=== PATIENT | female | born 1935 | race Caucasian/White ===

== ENCOUNTER → 2017-10-05 05:00 | Outpatient (REF) | payer MEDICARE, OTHER, SELFPAY ==
[2017-10-05 08:07] LABS: Hematocrit 35.3 % (37-47); Hemoglobin 10.9 g/dl (12.0-15.0); Mean Corp Hgb Conc 30.9 g/gl (32-36); Mean Corpuscular Hgb 23.7 pg (27.0-32.0); Mean Corpuscular Volume 76.7 fL (81-99); Mean Platelet Vol. 11.4 fl (6.2-12.0); Platelet Count 271 K/mm3 (150-450); RBC Distribution Width SD 41.7 fl (35.1-43.9); White Blood Count 7.2 K/mm3 (4.4-11.0)
[2017-10-05 08:08] LABS: Anion Gap 7 (5-15); BUN 25 mg/dL (7-18); BUN/Creat Ratio 17.9 RATIO (10-20); Calcium,Total 8.5 mg/dL (8.5-10.1); Chloride 101 mmol/L (98-107); EST Glomerular Filtration Rate 38 mL/min (>60); Est Glom Filt Rate - Afr Amer 46 mL/min (>60); Glucose 329 mg/dL (74-106); Potassium 4.4 mmol/L (3.5-5.1); Sodium Level 136 mmol/L (136-145)
[2017-10-05 08:14] LABS: Scan Indicated on CBC? Y/N NO
[2017-10-05 08:32] LABS: Hemoglobin A1c 8.6 % (4.2-6.3)
== END ==
LOC: OLS.DANBUR 05:00
PROVIDERS: Visit Provider Family Medicine
DX: I48.91 Unspecified atrial fibrillation (principal); E11.9 Type 2 diabetes mellitus without complications; E78.5 Hyperlipidemia, unspecified
CPT/HCPCS: 36415; 80048; 83036; 85027

== ENCOUNTER → 2017-10-16 03:00 | Outpatient (REF) | payer MEDICARE, OTHER, SELFPAY ==
[2017-10-16 11:35] LABS: Color, Urine Yellow (Yellow); Glucose, Dipstick Normal (Normal); Ketone-Dipstick Negative (Negative); Leukocyte Esterase-Dipstick 500 /ul (Negative); Nitrite-Dipstick Positive (Negative); Occult Blood-Urine 150 /ul (Negative); Protein-Dipstick 30 mg/dl (Negative); Specific Gravity, Urine 1.015 (1.002-1.030); Urine Bilirubin Dipstick Negative (Negative); Urine Clarity Clear (Clear); Urine Urobilinogen Normal (Normal)
== END ==
LOC: OLS.DANBUR 03:00
PROVIDERS: Visit Provider Family Medicine
DX: N39.0 Urinary tract infection, site not specified (principal)
CPT/HCPCS: 81002; 87077; 87086; 87088; 87186

== ENCOUNTER → 2017-11-23 07:00 | Outpatient (REF) | payer MEDICARE, OTHER, SELFPAY ==
[2017-11-23 08:46] LABS: Color, Urine Yellow (Yellow); Glucose, Dipstick Normal (Normal); Ketone-Dipstick Negative (Negative); Leukocyte Esterase-Dipstick 500 /ul (Negative); Nitrite-Dipstick Negative (Negative); Occult Blood-Urine 25 /ul (Negative); Protein-Dipstick 15 mg/dl (Negative); Urine Bilirubin Dipstick Negative (Negative); Urine Clarity Sl. Cloudy (Clear); Urine Urobilinogen Normal (Normal)
== END ==
LOC: OLS.DANBUR 07:00
PROVIDERS: Visit Provider Family Medicine
DX: N39.0 Urinary tract infection, site not specified (principal)
CPT/HCPCS: 81002; 87077; 87086; 87088; 87186

== ENCOUNTER → 2017-12-08 06:52 | Outpatient (REF) | payer MEDICARE, OTHER, SELFPAY ==
[2017-12-08 08:38] LABS: Color, Urine Straw (Yellow); Glucose, Dipstick Normal (Normal); Ketone-Dipstick Negative (Negative); Leukocyte Esterase-Dipstick 500 /ul (Negative); Nitrite-Dipstick Negative (Negative); Occult Blood-Urine 25 /ul (Negative); Protein-Dipstick Negative (Negative); Urine Bilirubin Dipstick Negative (Negative); Urine Clarity Clear (Clear); Urine Urobilinogen Normal (Normal); Urine pH 6.5 (5.0 - 8.0)
== END ==
LOC: OLS.DANBUR 06:52
PROVIDERS: Visit Provider Family Medicine
DX: N39.0 Urinary tract infection, site not specified (principal)
CPT/HCPCS: 81002; 87077; 87086; 87088; 87186

== ENCOUNTER → 2017-12-25 21:00 | Outpatient (REF) | payer MEDICARE, OTHER, SELFPAY ==
[2017-12-26 08:04] LABS: Color, Urine Straw (Yellow); Glucose, Dipstick Normal (Normal); Ketone-Dipstick Negative (Negative); Leukocyte Esterase-Dipstick 500 /ul (Negative); Nitrite-Dipstick Negative (Negative); Occult Blood-Urine 250 /ul (Negative); Protein-Dipstick 30 mg/dl (Negative); Specific Gravity, Urine 1.015 (1.002-1.030); Urine Bilirubin Dipstick Negative (Negative); Urine Clarity Sl. Cloudy (Clear); Urine Urobilinogen Normal (Normal)
== END ==
LOC: OLS.DANBUR 21:00
PROVIDERS: Visit Provider Family Medicine
DX: N39.0 Urinary tract infection, site not specified (principal)
CPT/HCPCS: 81002; 87077; 87086; 87088; 87186

== ENCOUNTER → 2018-01-13 08:14 | Outpatient (REF) | payer MEDICARE, OTHER, SELFPAY ==
[2018-01-13 08:52] LABS: Color, Urine Yellow (Yellow); Glucose, Dipstick 100 mg/dl (Normal); Ketone-Dipstick Negative (Negative); Leukocyte Esterase-Dipstick 500 /ul (Negative); Nitrite-Dipstick Negative (Negative); Occult Blood-Urine 150 /ul (Negative); Protein-Dipstick 15 mg/dl (Negative); Specific Gravity, Urine 1.015 (1.002-1.030); Urine Bilirubin Dipstick Negative (Negative); Urine Clarity Clear (Clear); Urine Urobilinogen Normal (Normal)
== END ==
LOC: OLS.DANBUR 08:14
PROVIDERS: Visit Provider Family Medicine
DX: N39.0 Urinary tract infection, site not specified (principal)
CPT/HCPCS: 81002; 87077; 87086; 87088; 87186

== ENCOUNTER → 2018-02-01 05:00 | Outpatient (REF) | payer MEDICARE, OTHER, SELFPAY ==
[2018-02-01 07:53] LABS: Hematocrit 37.4 % (37-47); Hemoglobin 11.9 g/dl (12.0-15.0); Mean Corp Hgb Conc 31.8 g/gl (32-36); Mean Corpuscular Hgb 25.6 pg (27.0-32.0); Mean Corpuscular Volume 80.4 fL (81-99); Mean Platelet Vol. 11.2 fl (6.2-12.0); Platelet Count 191 K/mm3 (150-450); RBC Distribution Width CV 16.4 % (11.6-14.6); RBC Distribution Width SD 47.3 fl (35.1-43.9); Red Blood Count 4.65 M/mm3 (4.2-5.4); White Blood Count 7.8 K/mm3 (4.4-11.0)
[2018-02-01 07:55] LABS: Scan Indicated on CBC? Y/N NO
[2018-02-01 08:06] LABS: ALB/GLOB Ratio 0.8 RATIO (0.9-2.4); AST(SGOT) 14 U/L (15-37); Alanine Aminotransfer ALT/SGPT 26 U/L (13-56); Alkaline Phosphatase 78 U/L (45-117); Anion Gap 7 (5-15); BUN 34 mg/dL (7-18); BUN/Creat Ratio 16.4 RATIO (10-20); Calcium,Total 8.1 mg/dL (8.5-10.1); Chloride 103 mmol/L (98-107); Creatinine, Serum 2.07 mg/dL (0.55-1.02); EST Glomerular Filtration Rate 24 mL/min (>60); Est Glom Filt Rate - Afr Amer 30 mL/min (>60); Globulin 3.6 g/dL (2.2-4.2); Glucose 184 mg/dL (74-106); Potassium 4.6 mmol/L (3.5-5.1); Protein, Total 6.6 g/dL (6.4-8.2); Sodium Level 139 mmol/L (136-145)
== END ==
LOC: OLS.DANBUR 05:00
PROVIDERS: Visit Provider Family Medicine
DX: I48.91 Unspecified atrial fibrillation (principal); F03.90 Unspecified dementia, unspecified severity, without behavioral disturbance, psychotic disturbance, mood disturbance, and anxiety; E11.9 Type 2 diabetes mellitus without complications; I10 Essential (primary) hypertension; E78.5 Hyperlipidemia, unspecified; R60.0 Localized edema; F32.9 Major depressive disorder, single episode, unspecified; M19.90 Unspecified osteoarthritis, unspecified site
CPT/HCPCS: 36415; 80053; 85027

== ENCOUNTER → 2018-02-28 07:31 | Outpatient (REF) | payer MEDICARE, OTHER, SELFPAY ==
[2018-02-28 08:08] LABS: Color, Urine Straw (Yellow); Glucose, Dipstick Normal (Normal); Ketone-Dipstick Negative (Negative); Leukocyte Esterase-Dipstick 500 /ul (Negative); Nitrite-Dipstick Negative (Negative); Occult Blood-Urine 150 /ul (Negative); Protein-Dipstick Negative (Negative); Urine Bilirubin Dipstick Negative (Negative); Urine Clarity Clear (Clear); Urine Urobilinogen Normal (Normal); Urine pH 6.5 (5.0 - 8.0)
== END ==
LOC: OLS.DANBUR 07:31
PROVIDERS: Visit Provider Family Medicine
DX: N39.0 Urinary tract infection, site not specified (principal)
CPT/HCPCS: 81002; 87086; 87088

== ENCOUNTER → 2018-04-05 06:00 | Outpatient (REF) | payer MEDICARE, OTHER, SELFPAY ==
[2018-04-05 09:24] LABS: Hematocrit 40.2 % (37-47); Hemoglobin 13.1 g/dl (12.0-15.0); Mean Corp Hgb Conc 32.6 g/gl (32-36); Mean Corpuscular Hgb 27.2 pg (27.0-32.0); Mean Corpuscular Volume 83.6 fL (81-99); Mean Platelet Vol. 11.2 fl (6.2-12.0); Platelet Count 186 K/mm3 (150-450); RBC Distribution Width CV 14.6 % (11.6-14.6); Red Blood Count 4.81 M/mm3 (4.2-5.4); White Blood Count 7.6 K/mm3 (4.4-11.0)
[2018-04-05 09:27] LABS: Scan Indicated on CBC? Y/N NO
[2018-04-05 09:29] LABS: Anion Gap 9 (5-15); BUN 25 mg/dL (7-18); BUN/Creat Ratio 16.7 RATIO (10-20); Calcium,Total 8.5 mg/dL (8.5-10.1); Chloride 102 mmol/L (98-107); EST Glomerular Filtration Rate 35 mL/min (>60); Est Glom Filt Rate - Afr Amer 43 mL/min (>60); Glucose 234 mg/dL (74-106); Potassium 4.4 mmol/L (3.5-5.1); Sodium Level 138 mmol/L (136-145)
[2018-04-05 09:43] LABS: Hemoglobin A1c 9.1 % (4.2-6.3)
== END ==
LOC: OLS.DANBUR 06:00
PROVIDERS: Visit Provider Family Medicine
DX: I10 Essential (primary) hypertension (principal); E78.5 Hyperlipidemia, unspecified; E11.9 Type 2 diabetes mellitus without complications
CPT/HCPCS: 36415; 80048; 83036; 85027

== ENCOUNTER → 2018-07-06 05:00 | Outpatient (REF) | payer MEDICARE, OTHER, SELFPAY ==
[2018-07-06 08:23] LABS: Hemoglobin A1c 8.6 % (4.2-6.3)
[2018-07-06 08:35] LABS: Anion Gap 9 (5-15); BUN 27 mg/dL (7-18); BUN/Creat Ratio 15.9 RATIO (10-20); Calcium,Total 8.9 mg/dL (8.5-10.1); Chloride 104 mmol/L (98-107); EST Glomerular Filtration Rate 31 mL/min (>60); Est Glom Filt Rate - Afr Amer 37 mL/min (>60); Glucose 121 mg/dL (74-106); Potassium 4.8 mmol/L (3.5-5.1); Sodium Level 141 mmol/L (136-145)
== END ==
LOC: OLS.DANBUR 05:00
PROVIDERS: Visit Provider Family Medicine
DX: I48.91 Unspecified atrial fibrillation (principal); F03.90 Unspecified dementia, unspecified severity, without behavioral disturbance, psychotic disturbance, mood disturbance, and anxiety; E11.9 Type 2 diabetes mellitus without complications; I10 Essential (primary) hypertension; B35.1 Tinea unguium; F32.9 Major depressive disorder, single episode, unspecified; M19.90 Unspecified osteoarthritis, unspecified site
CPT/HCPCS: 36415; 80048; 83036

== ENCOUNTER → 2018-11-18 02:00 | Outpatient (REF) | payer MEDICARE, OTHER, SELFPAY ==
[2018-11-18 10:22] LABS: Color, Urine Yellow (Yellow); Glucose, Dipstick Normal (Normal); Ketone-Dipstick Negative (Negative); Leukocyte Esterase-Dipstick 500 /ul (Negative); Nitrite-Dipstick Negative (Negative); Occult Blood-Urine 10 /ul (Negative); Protein-Dipstick Negative (Negative); Specific Gravity, Urine 1.015 (1.002-1.030); Urine Bilirubin Dipstick Negative (Negative); Urine Clarity Clear (Clear); Urine Urobilinogen Normal (Normal)
== END ==
LOC: OLS.DANBUR 02:00
PROVIDERS: Visit Provider Family Medicine
DX: R30.0 Dysuria (principal); R53.1 Weakness
CPT/HCPCS: 81002; 87086; 87088

== ENCOUNTER → 2019-01-03 05:00 | Outpatient (REF) | payer MEDICARE, OTHER, SELFPAY ==
[2019-01-03 07:48] LABS: Hematocrit 43.5 % (37-47); Hemoglobin 14.1 g/dl (12.0-15.0); Mean Corp Hgb Conc 32.4 g/gl (32-36); Mean Corpuscular Hgb 28.3 pg (27.0-32.0); Mean Corpuscular Volume 87.2 fL (81-99); Mean Platelet Vol. 11.5 fl (6.2-12.0); Platelet Count 172 K/mm3 (150-450); RBC Distribution Width CV 13.3 % (11.6-14.6); Red Blood Count 4.99 M/mm3 (4.2-5.4); White Blood Count 7.5 K/mm3 (4.4-11.0)
[2019-01-03 07:50] LABS: Scan Indicated on CBC? Y/N NO
[2019-01-03 07:58] LABS: Anion Gap 6 (5-15); BUN 27 mg/dL (7-18); BUN/Creat Ratio 17.2 RATIO (10-20); Calcium,Total 8.8 mg/dL (8.5-10.1); Chloride 107 mmol/L (98-107); Creatinine, Serum 1.57 mg/dL (0.55-1.02); EST Glomerular Filtration Rate 33 mL/min (>60); Est Glom Filt Rate - Afr Amer 40 mL/min (>60); Glucose 120 mg/dL (74-106); Sodium Level 142 mmol/L (136-145)
[2019-01-03 08:01] LABS: Hemoglobin A1c 7.7 % (4.2-6.3)
== END ==
LOC: OLS.DANBUR 05:00
PROVIDERS: Visit Provider Family Medicine
DX: I48.91 Unspecified atrial fibrillation (principal); D64.9 Anemia, unspecified; E11.9 Type 2 diabetes mellitus without complications; I10 Essential (primary) hypertension; E78.5 Hyperlipidemia, unspecified
CPT/HCPCS: 36415; 80048; 83036; 85027

== ENCOUNTER 2019-04-16 11:30 | Inpatient (IN) | payer MEDICARE, SELFPAY ==
[2019-04-16] VITALS (8 sets, daily range): BP systolic 102–160; BP diastolic 52–82; PULSE 77–123; RESP 18–29; TEMP 36.2–39; O2SAT 93–98; BMI 40.3; BMI 39.4
--- NOTE | 2019-04-16 11:36 | EKG12_ITS ---
Test Reason : SOB Blood Pressure : / mmHG Vent. Rate : 108 BPM Atrial Rate : 115 BPM P-R Int : 000 ms QRS Dur : 086 ms QT Int : 330 ms P-R-T Axes : 000 053 146 degrees QTc Int : 442 ms Atrial fibrillation with rapid ventricular response Abnormal QRS-T angle, consider primary T wave abnormality Abnormal ECG Confirmed by FORD ANTUNEZ ([id number]), electronic news gathering editor ARVIND JOHN ([id number]) on 04/17/2019 1:42:09 PM Referred By: José Patel Confirmed By:FORD ANTUNEZ
--- NOTE | 2019-04-16 11:41 | ED.VIS.GEN ---
History of Present Illness Chief Complaint: Shortness of Breath Informant: Patient Onset: Days Context: Gradual Onset Timing: Continuous Current Severity: Moderate Maximum Severity: Moderate Narrative: The patient in the emergency department presents to the emergency department with fever and shortness of breath. Patient has a history of atrial fibrillation. She is currently at [facility] due to advanced dementia. Over the past day, she is had worsening shortness of breath. She was found to have a fever today. The patient really does not give any history. She denies any cough. She denies abdominal pain. She denies any other systemic symptoms. History is gathered from longterm notes in the records. The patient does have a standing DNR CC order. Prior similar symptoms: No Recent Illness/Hospitalization: Yes Past Medical History - Allergies and Home Meds Allergies/Adverse Reactions: Allergies No Known Allergies Allergy (Verified 04/16/19 11:36) Primary Care Physician: Ana Canales MD [Primary Care Provider] - Prior records reviewed: Yes Past Medical History: - Surgical History: hysterectomy Smoking Status: Never smoker - Family History Maternal Family History: Reports: Unknown, No pertinent history Paternal Family History: Reports: No pertinent history Review of Systems ROS: Unable to Obtain Physical Exam Vital Signs/Narrative: Vital Signs Temp Pulse Resp BP Pulse Ox 04/16/19 11:32 102.2 F H 123 H 29 H 160/80 H 93 Inital Vital Signs reviewed: Yes General: Well nourished, Well developed Head: Normocephalic, Atraumatic Eyes: Perrl, EOMI ENT: Moist mucous membranes, No rhinorrhea, TM's clear Neck: Supple, Nontender, No lymphadenopathy Cardiovascular: Irregular, Tachycardia Respiratory: No distress, Decreased Air Movement Abdomen: Soft, Nontender, Nondistended Extremities: Nontender, Edema Skin: Normal color, No rash Neurological: Cranial nerves II-XII grossly intact, Normal Sensation, Confused Diagnostic/Tx/Re-eval Chest X-Ray - ED: 1 View, Read by ED Physician, Read by Radiologist, Cardiomegaly, No Infiltrates Clinical Impression(s) from Imaging Studies Chest X-Ray 04/16/19 11:50 IMPRESSION: Stable marked cardiomegaly, low volume inspiration and diffuse interstitial pattern. No acute findings. Electronically Signed: Ger Burgess MD at 12:04 EDT , Service support , Abnormal Lab Results 04/16/19 04/16/19 04/16/19 11:50 11:50 11:50 WBC 15.5 H RBC 5.03 Hgb 14.7 Hct 44.0 MCV 87.5 MCH 29.2 MCHC 33.4 RDW Std Deviation 40.5 RDW Coeff of Gutierrez 12.8 Plt Count 208 MPV 10.7 Immature Gran % (Auto) 0.600 Neut % (Auto) 92.3 H Lymph % (Auto) 4.2 L [place] % (Auto) 2.5 Eos % (Auto) 0.1 Baso % (Auto) 0.3 Absolute Neuts (auto) 14.3 H Absolute Lymphs (auto) 0.65 L Nucleated RBC % 0 Differential Comment Platelet Estimate ADEQUATE RBC Morphology NORM C+C Sodium 136 Potassium 4.7 Chloride 103 Carbon Dioxide 22.0 Anion Gap 11 BUN 41 H Creatinine 2.58 H Estim Creat Clear Calc 14.27 Est GFR (MDRD) Af Amer 23 L Est GFR (MDRD) Non-Af 19 L BUN/Creatinine Ratio 15.9 Glucose 256 H Lactic Acid 3.1 H Calcium 8.9 Total Bilirubin 1.20 H AST 13 L ALT 23 Alkaline Phosphatase 101 Total Protein 8.2 Albumin 3.3 Globulin 4.9 H Albumin/Globulin Ratio 0.7 L Urine Color Urine Clarity Urine pH Ur Specific [place] Urine Protein Urine Glucose (UA) Urine Ketones Urine Occult Blood Urine Nitrite Urine Bilirubin Urine Urobilinogen Ur Leukocyte Esterase Urine RBC Urine WBC Ur Squamous Epith Cells Urine Bacteria Urine Mucus 04/16/19 12:35 WBC RBC Hgb Hct MCV MCH MCHC RDW Std Deviation RDW Coeff of Gutierrez Plt Count MPV Immature Gran % (Auto) Neut % (Auto) Lymph % (Auto) [place] % (Auto) Eos % (Auto) Baso % (Auto) Absolute Neuts (auto) Absolute Lymphs (auto) Nucleated RBC % Differential Comment Platelet Estimate RBC Morphology Sodium Potassium Chloride Carbon Dioxide Anion Gap BUN Creatinine Estim Creat Clear Calc Est GFR (MDRD) Af Amer Est GFR (MDRD) Non-Af BUN/Creatinine Ratio Glucose Lactic Acid Calcium Total Bilirubin AST ALT Alkaline Phosphatase Total Protein Albumin Globulin Albumin/Globulin Ratio Urine Color Yellow Urine Clarity Turbid Urine pH 6.0 Ur Specific [place] 1.020 Urine Protein 100 H Urine Glucose (UA) Normal Urine Ketones Negative Urine Occult Blood 250 H Urine Nitrite Negative Urine Bilirubin Negative Urine Urobilinogen Normal Ur Leukocyte Esterase 500 H Urine RBC 0 SEEN Urine WBC >100 SEEN Ur Squamous Epith Cells 0 SEEN Urine Bacteria 2+ Urine Mucus 0 SEEN - Rhythm Strip Rhythm Strip: A-fib Rate: 120 Ectopy: PAC(s) - EKG Initial EKG Interpretation: No Acute Injury Pattern, Atrial Fibrillation Prior: Unchanged - Medical Decision Making The patient presents to the emergency department with fever, confusion, and generalized malaise. The patient does have advanced dementia. She has a standing DNR order. She is febrile and tachycardic. EKG was obtained which demonstrated atrial fibrillation which the patient has a history of. Screening labs are obtained. Patient does have a leukocytosis. Her lactic acid is also mildly elevated. She is acute on chronic kidney disease. Chest x-ray shows cardiomegaly, but no focal infiltrative process. Labs are otherwise at the patient's baseline. Her urine does show definitive evidence of infection. I did discuss this with the family at the bedside. Plan will be to admit the patient for IV antibiotics, with no escalation of care given her standing comfort care only. They are comfortable with this and she will be admitted. Impression 1. UTI 2. Delirium 3. Sepsis 4. Atrial fibrillation with rapid ventricular response ED Disposition - Plan for ED Patient: Referrals: Ana Canales MD [Primary Care Provider] -
--- NOTE | 2019-04-16 11:50 | RAD_ITS ---
STUDY: X-RAY CHEST REASON FOR EXAM: Female, 83 years old. Shortness of breath. TECHNIQUE: Single frontal view of the chest. COMPARISON: July 31, 2017 FINDINGS: Stable low volume inspiration with diffuse interstitial pattern. There is no demonstrated pleural abnormality. Marked cardiomegaly unchanged. Normal mediastinum and francis. Normal visualized pulmonary arteries. Aortic tortuosity unchanged. Normal visualized thoracic spine. Stable superior migration of the right radial head compatible with rotator cuff tear. There is no demonstrated abnormality of the visualized soft tissue structures of the upper abdomen. RAD/Chest 1 View (Portable) IMPRESSION: Stable marked cardiomegaly, low volume inspiration and diffuse interstitial pattern. No acute findings. Electronically Signed: Ger Burgess MD at 12:04 EDT , Service support ,
[2019-04-16 12:03] LABS: Absolute Lymphocyte Count 0.65 X10^3/uL (0.83-4.51); Absolute Neutrophil Count 14.3 X10^3/uL (2.0-7.7); Basophil# 0.05 X10^3/uL; Basophil% 0.3 % (0-1); Eosinophil# 0.01 X10^3/uL; Eosinophils% 0.1 % (0-5); Hemoglobin 14.7 g/dL (12.0-15.0); Lymphocyte # 0.65 X10^3/ul (4.0); Lymphocyte % 4.2 % (19-41); Mean Corp Hgb Conc 33.4 g/dL (32-36); Mean Corpuscular Hgb 29.2 pg (27.0-32.0); Mean Corpuscular Volume 87.5 fL (81-99); Mean Platelet Vol. 10.7 fl (6.2-12.0); Monocyte# 0.39 X10^3/uL; Monocyte% 2.5 % (0-10); NRBC Flagged by Analyzer 0 % (0-5); Neutrophil # 14.31 X10^3/uL (2.7-7.7); Neutrophil % 92.3 % (47-70); POSITIVE MORPHOLOGY YES; Platelet Count 208 K/mm3 (150-450); RBC Distribution Width CV 12.8 % (11.6-14.6); RBC Distribution Width SD 40.5 fl (35.1-43.9); Red Blood Count 5.03 M/mm3 (4.2-5.4); White Blood Count 15.5 K/mm3 (4.4-11.0)
[2019-04-16] MEDS: Acetaminophen 325 MG Tablet 650 MG PO (12:16)
[2019-04-16 12:19] LABS: ALB/GLOB Ratio 0.7 RATIO (0.9-2.4); AST(SGOT) 13 U/L (15-37); Alanine Aminotransfer ALT/SGPT 23 U/L (13-56); Albumin, Serum 3.3 g/dL (3.2-5.0); Alkaline Phosphatase 101 U/L (45-117); Anion Gap 11 (5-15); BUN 41 mg/dL (7-18); BUN/Creat Ratio 15.9 RATIO (10-20); Calcium,Total 8.9 mg/dL (8.5-10.1); Chloride 103 mmol/L (98-107); Creatinine, Serum 2.58 mg/dL (0.55-1.02); EST Glomerular Filtration Rate 19 mL/min (>60); Est Glom Filt Rate - Afr Amer 23 mL/min (>60); Estimated Creatinine Clearance 14.27 ml/min; Globulin 4.9 g/dL (2.2-4.2); Glucose 256 mg/dL (74-106); Potassium 4.7 mmol/L (3.5-5.1); Protein, Total 8.2 g/dL (6.4-8.2); Sodium Level 136 mmol/L (136-145)
[2019-04-16 12:28] LABS: Platelet Estimate ADEQUATE (ADEQ); Red Cell Morphology NORM C+C NORMAL (NORM C&C)
[2019-04-16 12:29] LABS: Differential Indicated SCAN CRITERIA MET
[2019-04-16 12:37] LABS: Mucous, Urine 0 SEEN /hpf (<or=2+); Red Blood Cells-Urine 0 SEEN /hpf (0-5); Squamous Epithelial Cells - UA 0 SEEN /hpf (5-10)
[2019-04-16 12:40] LABS: Lactic Acid 3.1 mmol/L (0.4-2.0)
[2019-04-16 12:46] LABS: Color, Urine Yellow (Yellow); Glucose, Dipstick Normal (Normal); Ketone-Dipstick Negative (Negative); Leukocyte Esterase-Dipstick 500 /ul (Negative); Nitrite-Dipstick Negative (Negative); Occult Blood-Urine 250 /ul (Negative); Protein-Dipstick 100 mg/dl (Negative); Urine Bilirubin Dipstick Negative (Negative); Urine Clarity Turbid (Clear); Urine Urobilinogen Normal (Normal)
[2019-04-16 12:53] LABS: Bacteria 2+ /hpf (None Seen); White Blood Cells >100 SEEN /hpf (0-5)
--- NOTE | 2019-04-16 13:29 | ED.RN ---
notified Dr. Peacock of lactic acid 3.1
--- NOTE | 2019-04-16 13:41 | NURSING ---
MED SURG TERELETSKY SEPSIS, UTI
--- NOTE | 2019-04-16 14:01 | HP.PCM_ITS ---
Problem List (1) Urinary tract infection Status: Acute (2) Hyperlipidemia Status: Chronic (3) Chronic atrial fibrillation Status: Chronic (4) Type 2 diabetes mellitus Status: Chronic (5) Hypertension Status: Chronic (6) Dementia Status: Chronic History of Present Illness Date of Admission: 04/16/19 Chief Complaint: Fever, shortness of breath. The patient is an 83 year old F who presents emergency room from assisted living facility due to fever and shortness of breath. Unable to obtain ROS due to advanced dementia. Family at bedside reports patient was noted to have shortness of breath and fever at assisted living facility. Patient is drowsy with no acute distress during assessment. Family at bedside confirms patient is DNR CC status and they do not want any aggressive life-sustaining measures. Patient has a past medical history of hypertension, hyperlipidemia, chronic atrial fibrillation, type 2 diabetes mellitus, advanced dementia and questionable chronic hypoxic respiratory failure. Patient came to the hospital on supplemental oxygen and family reports she may use it as needed at assisted living facility however she does not wear it continuously. Past Medical History Past Medical History (Chronic Problems): Chronic Problems Dementia (Chronic) Hyperlipidemia (Chronic) Chronic atrial fibrillation (Chronic) Type 2 diabetes mellitus (Chronic) Hypertension (Chronic) Allergies No Known Allergies Allergy (Verified 04/16/19 11:36) Home Medications: Ambulatory Orders Medication Instructions Recorded Aspirin [Aspirin, Baby] 81 mg PO QHS 03/24/17 Cholecalciferol (VIT D3) [Vitamin 1,000 unit PO DAILY 03/24/17 D3] Escitalopram Oxalate [Lexapro] 10 mg PO DAILY 03/24/17 Furosemide [Lasix] 20 mg PO DAILY 03/24/17 Lisinopril [Zestril] 10 mg PO BID 03/24/17 Metoprolol Tartrate [Lopressor 100 mg PO BID 03/24/17 (beta hugo)] Pravastatin [Pravachol] 40 mg PO QHS 03/24/17 Acetaminophen [Tylenol] 1,000 mg PO Q8H PRN PRN tablet 08/03/17 Guaifenesin Dm [Robitussin Dm] 5 ml PO Q6H PRN PRN #250 udc 08/03/17 Lorazepam [Ativan] 0.5 mg PO Q6H PRN PRN #60 tablet 08/03/17 Diltiazem HCl [Diltiazem 24Hr ER] 300 mg PO DAILY 04/16/19 Donepezil HCl 5 mg PO DAILY 04/16/19 Hydrocortisone [Anusol Hc] 1 applic TP 4X/DAY PRN PRN 04/16/19 Insulin Detemir [Levemir] 32 unit SQ DAILY 04/16/19 Ipratropium/Albuterol Sulfate 3 ml INHALATION Q6H PRN PRN 04/16/19 [Duoneb] Loperamide [Imodium] 2 mg PO PRN PRN 04/16/19 Lorazepam [Ativan] 1 mg PO QHS 04/16/19 Losartan Potassium 100 mg PO DAILY 04/16/19 Risperidone 0.25 mg PO QHS 04/16/19 Tolnaftate 1 applic TP BID 04/16/19 Tolnaftate 1 applic TP BID PRN PRN 04/16/19 Zinc Oxide [Desitin] 1 applic TP BID PRN PRN 04/16/19 Zinc Oxide [Desitin] 1 applic TP TID 04/16/19 traMADol [Ultram (G)] 50 mg PO Q6H PRN PRN 04/16/19 traMADol [Ultram (G)] 50 mg PO QHS 04/16/19 Surgical History: hysterectomy Psychiatric History: Anxiety, Depression O AND M SUPERVISOR History: No pertinent O AND M SUPERVISOR history Lives: - - Assisted living facility Smoking Status: Never smoker Alcohol: None Drugs: None - *Family History Maternal History Items: - - Unable to obtain due to advanced dementia Paternal History Items: - - Unable to obtain due to advanced dementia Review of Systems Unable to obtain accurate/complete ROS d/t: Due to advanced dementia VTE Information - Inpt Only VTE Present on Admission: No VTE Mechan Device Prophylaxis: None VTE Pharm Prophylaxis ordered?: Yes - Physical Exam General: Cooperative, No apparent distress, - - Drowsy HEENT: Atraumatic, PERRLA, EOMI, Normocephalic Oral: Dry Mucosa Neck: Supple, No JVD, Negative Carotid Bruits Lungs: Clear to auscultation, Diminished Cardiovascular: - - Atrial fibrillation, rate controlled Abdomen: Bowel Sounds Present, Soft, Non Tender, Non-Distended, Obese Extremities: No clubbing, No cyanosis, No edema, Capillary Refill Less than 3 Seconds Skin: No rashes, No breakdown Musculoskeletal: No Tenderness to Palpation of Joints or Extremities Neurological: Cranial nerves II-XII grossly intact, Neuro grossly intact Psych/Mental Status: Normal Affect, Appropriate Vital Signs Temp Pulse Resp BP Pulse Ox 98.9 F 83 21 H 124/80 H 96 04/16/19 13:58 04/16/19 13:58 04/16/19 13:58 04/16/19 13:58 04/16/19 13:58 Oxygen Flow Rate (L/min) 3 Oxygen Delivery Method Room Air Weight: 235 lb 0.204 oz Body Mass Index (BMI) 40.3 Intake and Output for Last 24 Hours 04/14/19 04/15/19 04/16/19 23:59 23:59 23:59 Intake Total 500 / 500 Balance 500 / 500 Laboratory Tests Past 24 Hrs 04/16/19 04/16/19 04/16/19 11:50 11:50 11:50 WBC 15.5 H RBC 5.03 Hgb 14.7 Hct 44.0 MCV 87.5 MCH 29.2 MCHC 33.4 RDW Std Deviation 40.5 RDW Coeff of Gutierrez 12.8 Plt Count 208 MPV 10.7 Immature Gran % (Auto) 0.600 Neut % (Auto) 92.3 H Lymph % (Auto) 4.2 L [place] % (Auto) 2.5 Eos % (Auto) 0.1 Baso % (Auto) 0.3 Absolute Neuts (auto) 14.3 H Absolute Lymphs (auto) 0.65 L Nucleated RBC % 0 Differential Comment Platelet Estimate ADEQUATE RBC Morphology NORM C+C Sodium 136 Potassium 4.7 Chloride 103 Carbon Dioxide 22.0 Anion Gap 11 BUN 41 H Creatinine 2.58 H Estim Creat Clear Calc 14.27 Est GFR (MDRD) Af Amer 23 L Est GFR (MDRD) Non-Af 19 L BUN/Creatinine Ratio 15.9 Glucose 256 H Lactic Acid 3.1 H Calcium 8.9 Total Bilirubin 1.20 H AST 13 L ALT 23 Alkaline Phosphatase 101 Total Protein 8.2 Albumin 3.3 Globulin 4.9 H Albumin/Globulin Ratio 0.7 L Urine Color Urine Clarity Urine pH Ur Specific [place] Urine Protein Urine Glucose (UA) Urine Ketones Urine Occult Blood Urine Nitrite Urine Bilirubin Urine Urobilinogen Ur Leukocyte Esterase Urine RBC Urine WBC Ur Squamous Epith Cells Urine Bacteria Urine Mucus 04/16/19 12:35 WBC RBC Hgb Hct MCV MCH MCHC RDW Std Deviation RDW Coeff of Gutierrez Plt Count MPV Immature Gran % (Auto) Neut % (Auto) Lymph % (Auto) [place] % (Auto) Eos % (Auto) Baso % (Auto) Absolute Neuts (auto) Absolute Lymphs (auto) Nucleated RBC % Differential Comment Platelet Estimate RBC Morphology Sodium Potassium Chloride Carbon Dioxide Anion Gap BUN Creatinine Estim Creat Clear Calc Est GFR (MDRD) Af Amer Est GFR (MDRD) Non-Af BUN/Creatinine Ratio Glucose Lactic Acid Calcium Total Bilirubin AST ALT Alkaline Phosphatase Total Protein Albumin Globulin Albumin/Globulin Ratio Urine Color Yellow Urine Clarity Turbid Urine pH 6.0 Ur Specific [place] 1.020 Urine Protein 100 H Urine Glucose (UA) Normal Urine Ketones Negative Urine Occult Blood 250 H Urine Nitrite Negative Urine Bilirubin Negative Urine Urobilinogen Normal Ur Leukocyte Esterase 500 H Urine RBC 0 SEEN Urine WBC >100 SEEN Ur Squamous Epith Cells 0 SEEN Urine Bacteria 2+ Urine Mucus 0 SEEN Assessment/Plan All Active Problems Urinary tract infection (Acute) 1. Acute sepsis secondary to acute UTI-UA remarkable for greater than 100 WBC, 2+ bacteria. Urine and blood cultures pending. History of Klebsiella and ESBL urine cultures. IV Zosyn. IV fluids. PRN Tylenol. 2. Acute kidney injury on chronic kidney disease stage III-IV fluids, trend BMP. 3. Chronic hypoxic respiratory failure? Patient apparently wears as needed supplemental oxygen, does not wear continuous supplemental oxygen at assisted living facility. Chest x-ray admission with low volume inspiration and diffuse interstitial pattern. No acute findings. Continue supplement oxygen to maintain O2 above 90%. 4. Advanced dementia-lives in assisted living. Comfort care status. History of recurrent falls. Fall precautions. Continue donepezil, risperidone regimen. 5. Chronic atrial fibrillation-rate controlled. Continue Cardizem. No longer on anticoagulation given history of recurrent falls. 6. Type 2 diabetes mellitus-not on regimen. Carb controlled diet. 7. Hypertension-hold lisinopril, losartan and Lasix regimen given acute kidney injury. 8. Hyperlipidemia-continue statin regimen. 9. Debility with history of recurrent falls-family reports patient is mostly wheelchair-bound. PT/OT. DVT prophylaxis-heparin subcu CODE STATUS: DNR CC This patient was seen by BRENDA ButtsC under the supervision of Dr. Patel.
[2019-04-16 15:58] LABS: Reflex Lactate? Y
[2019-04-16 16:50] LABS: Lactic Acid 1.8 mmol/L (0.4-2.0)
[2019-04-16] MEDS: 0.9% Normal Saline 1,000 ML 100 ML IV (17:38)
[2019-04-16] MEDS: Heparin Injection (Vial) 5,000 UNIT/ML VIAL 5000 UNIT SC ×2 (17:38→21:46)
[2019-04-16 22:06] LABS: Bedside Glucose 225 mg/dL (70-110)
[2019-04-16] MEDS: Pravastatin 40 MG Tablet PO (23:05)
[2019-04-16] MEDS: Aspirin 81 MG TAB.CHEW PO (23:05)
[2019-04-16] MEDS: LORazepam 1 MG Tablet PO (23:05)
[2019-04-16] MEDS: RisperiDONE 0.25 MG Tablet PO (23:05)
[2019-04-16] MEDS: Insulin Lispro 100 UNIT/ML INSULN.PEN SC (23:07)
[2019-04-17] VITALS (10 sets, daily range): BP systolic 127–146; BP diastolic 69–81; PULSE 67–160; RESP 16–18; TEMP 36.4–37.2; O2SAT 96–100
--- NOTE | 2019-04-17 03:54 | NURSING ---
Entered pt room to straight cath pt per order; pt wanting to try voiding on bedpan one more time. Pt able to void 450cc of cloudy, foul smelling urine. Will continue to monitor and assess.
[2019-04-17 05:21] LABS: Absolute Lymphocyte Count 1.47 X10^3/uL (0.83-4.51); Absolute Neutrophil Count 9.1 X10^3/uL (2.0-7.7); Basophil# 0.04 X10^3/uL; Basophil% 0.3 % (0-1); Eosinophil# 0.05 X10^3/uL; Eosinophils% 0.4 % (0-5); Hematocrit 38.1 % (37-47); Hemoglobin 12.2 g/dL (12.0-15.0); Lymphocyte # 1.47 X10^3/ul (4.0); Lymphocyte % 11.7 % (19-41); Mean Corpuscular Volume 90.5 fL (81-99); Mean Platelet Vol. 11.1 fl (6.2-12.0); Monocyte% 14.4 % (0-10); NRBC Flagged by Analyzer 0 % (0-5); Neutrophil # 9.11 X10^3/uL (2.7-7.7); Neutrophil % 72.6 % (47-70); POSITIVE DIFFERENTIAL YES; Platelet Count 160 K/mm3 (150-450); RBC Distribution Width CV 12.9 % (11.6-14.6); RBC Distribution Width SD 42.6 fl (35.1-43.9); Red Blood Count 4.21 M/mm3 (4.2-5.4); White Blood Count 12.5 K/mm3 (4.4-11.0)
[2019-04-17 05:25] LABS: Anion Gap 8 (5-15); BUN 41 mg/dL (7-18); BUN/Creat Ratio 18.7 RATIO (10-20); Calcium,Total 8.2 mg/dL (8.5-10.1); Chloride 109 mmol/L (98-107); Creatinine, Serum 2.19 mg/dL (0.55-1.02); EST Glomerular Filtration Rate 23 mL/min (>60); Est Glom Filt Rate - Afr Amer 28 mL/min (>60); Estimated Creatinine Clearance 16.81 ml/min; Glucose 184 mg/dL (74-106); Potassium 4.4 mmol/L (3.5-5.1); Sodium Level 142 mmol/L (136-145)
[2019-04-17 05:34] LABS: Differential Indicated SCAN CRITERIA MET
[2019-04-17] MEDS: Heparin Injection (Vial) 5,000 UNIT/ML VIAL 5000 UNIT SC ×3 (05:41→21:55)
[2019-04-17 06:18] LABS: Differential Comment SCANNED
[2019-04-17] MEDS: 0.9% Normal Saline 1,000 ML 100 ML IV (06:36)
[2019-04-17 06:41] LABS: Bedside Glucose 148 mg/dL (70-110)
--- NOTE | 2019-04-17 10:59 | CASEMGMT ---
LW/POA forms both scanned into summary tab of pt's e-chart. Forms list Williams Gray as POA, however pt is . Dot Romero is listed as first alternate. EZ Mackay
[2019-04-17 11:16] LABS: Bedside Glucose 168 mg/dL (70-110)
--- NOTE | 2019-04-17 12:29 | CASEMGMT ---
ESTER called Alexei Baez, francisco w/[employer], director mobile media solutions. ESTER verified that Bernadine Gray is the same person as Dot Gray, pt's daughter. ESTER verified her telephone number, Jovita indicated that she can be difficult to reach however. She states they do not have a current number for pt's son Eliud Gray. Jovita also gave this SW a number to a friend of the pt's and pt's daughter, Shira Scott, and she is able to get a hold of pt's daughter at times. Her number is [phone]. ESTER called daughter Bernadine, message left. ESTER called the number listed for the son, there is no answer. ESTER will call pt's daughter's friend if necessary. EZ Mackay
--- NOTE | 2019-04-17 12:53 | CHAPLAIN ---
Type of Pastoral Visit _x__ Initial Visit ___ Follow-up Visit ___ On-call Visit ___ General Patient Visit ___ Spiritual Assessment ___ Family Conference ___ Bereavement ___ Rapid Response ___ Code Blue ___ Other (describe below) Pastoral Care Referral From _x__ Patient ___ Family ___ Nurse ___ Physician ___ Can Maker ___ Curriculum Manager ___ Other (describe below) Sacrament/Intervention _x__ Active listening ___ Anointing ___ Faith ___ Bereavement ___ Communion ___ Maria Eugenia exploration ___ ___ Life review _x__ Prayer ___ Reconciliation ___ Sacrament of Sick _x__ Supportive presence ___ Wedding ___ Other (describe below) Pastoral Comments
[2019-04-17] MEDS: Insulin Lispro 100 UNIT/ML INSULN.PEN SC ×3 (14:12→22:11)
--- NOTE | 2019-04-17 14:48 | EKG12_ITS ---
Test Reason : Blood Pressure : / mmHG Vent. Rate : 151 BPM Atrial Rate : 182 BPM P-R Int : 000 ms QRS Dur : 080 ms QT Int : 296 ms P-R-T Axes : 000 041 176 degrees QTc Int : 469 ms Atrial fibrillation Anterior infarct , age undetermined Abnormal ECG When compared with ECG of 16-APR-2019 11:33, No significant change was found Confirmed by JOLIE NARVAEZ, DILLAN ([id number]), mapping editor ARVIND JOHN ([id number]) on 04/22/2019 3:17:13 PM Referred By: José Patel Confirmed By:BEKAH DAVE MD
[2019-04-17 14:54] LABS: Pathologist Review Reviewed
--- NOTE | 2019-04-17 15:20 | CASEMGMT ---
Social Work Note Pt's daughter Bernadine present at [facility]. ESTER met with pt and pt's daughter Bernadine. Bernadine confirms that pt is from [facility] and the plan is for pt to return. Bernadine states pt will need transportation arranged and typically [facility] is able to transport pt. ESTER explained that this worker will call [place] first when pt is able to be discharged to determine if they are able to transport pt and if not this worker will try to arrange transportation via wheelchair van but pt will have a bill as pt's insurance doesn't cover wheelchair van. Bernadine states understanding. ESTER faxed updated clinicals to [facility]. Plan: Return to [facility] once medically cleared Kendy Huggins BROADCAST TRAFFIC COORDINATOR, BRIDGE GANG WORKER
[2019-04-17] MEDS: 0.9% Normal Saline 1,000 ML 60 ML IV (15:38)
[2019-04-17] MEDS: Metoprolol Tartrate 100 MG Tablet PO ×2 (15:38→21:56)
[2019-04-17] MEDS: dilTIAZem CD 180 MG Capsule PO (15:58)
[2019-04-17 16:20] LABS: Bedside Glucose 221 mg/dL (70-110)
--- NOTE | 2019-04-17 19:15 | PN_ITS ---
Subjective: Patient was seen and examined today, she does not appear to be in any respiratory distress at this time, I have reconciled her medications and omitted some of them today. Patient's urine grew out Proteus-for now I will keep her on Zosyn, it may be sensitive however to a cephalosporin. Patient's white blood cell count today was improved. She still remains confused, this afternoon it was noted that she was in atrial fibrillation-she has had a history in the past of atrial fibrillation and was on rate control medications. Objective: General: Cooperative, No apparent distress, - - Drowsy HEENT: Atraumatic, PERRLA, EOMI, Normocephalic Oral: Dry Mucosa Neck: Supple, No JVD, Negative Carotid Bruits Lungs: Clear to auscultation, Diminished Cardiovascular: - - Atrial fibrillation, rate controlled Abdomen: Bowel Sounds Present, Soft, Non Tender, Non-Distended, Obese Extremities: No clubbing, No cyanosis, No edema, Capillary Refill Less than 3 Seconds Skin: No rashes, No breakdown Musculoskeletal: No Tenderness to Palpation of Joints or Extremities Neurological: Cranial nerves II-XII grossly intact, Neuro grossly intact Psych/Mental Status: Patient was alert but confused, she appeared in no distress - Physical Exam Vital Signs Temp Pulse Resp BP Pulse Ox 98.0 F 149 H 18 139/71 H 96 04/17/19 16:14 04/17/19 16:14 04/17/19 16:14 04/17/19 16:14 04/17/19 16:14 Oxygen Flow Rate (L/min) 2 Oxygen Delivery Method Nasal Cannula Weight: 105.6 kg Body Mass Index (BMI) 39.4 Intake and Output for Last 24 Hours 04/15/19 04/16/19 04/17/19 23:59 23:59 23:59 Intake Total 990.62 / 1110.62 1586.05 / 1586.05 Output Total 1850 / 1850 Balance 990.62 / 1110.62 -263.95 / -263.95 Microbiology Past 72 Hours 04/16/19 12:35 Urine Culture - Preliminary Urine, Clean Catch Proteus sp. 04/16/19 12:00 Blood Culture - Preliminary Blood Culture (Wb) - Anticubital Right Laboratory Tests Past 24 Hrs 04/17/19 04/17/19 05:00 05:00 WBC 12.5 H RBC 4.21 Hgb 12.2 Hct 38.1 MCV 90.5 MCH 29.0 MCHC 32.0 RDW Std Deviation 42.6 RDW Coeff of Gutierrez 12.9 Plt Count 160 MPV 11.1 Immature Gran % (Auto) 0.600 Neut % (Auto) 72.6 H Lymph % (Auto) 11.7 L [place] % (Auto) 14.4 H Eos % (Auto) 0.4 Baso % (Auto) 0.3 Absolute Neuts (auto) 9.1 H Absolute Lymphs (auto) 1.47 Nucleated RBC % 0 Differential Comment SCANNED Diff Path Review Reviewed Sodium 142 Potassium 4.4 Chloride 109 H Carbon Dioxide 25.0 Anion Gap 8 BUN 41 H Creatinine 2.19 H Estim Creat Clear Calc 16.81 Est GFR (MDRD) Af Amer 28 L Est GFR (MDRD) Non-Af 23 L BUN/Creatinine Ratio 18.7 Glucose 184 H Calcium 8.2 L POC Glucose 04/17/19 04/17/19 04/17/19 16:02 11:11 06:35 POC Glucose 221 H 168 H 148 H 04/16/19 22:01 POC Glucose 225 H Medical Necessity - Tobacco Use Smoking Status: Never smoker Tobacco Use: Secondhand Assessment/Plan All Active Problems Urinary tract infection (Acute) #1 acute severe sepsis secondary to acute cystitis from Proteus mirabilis- continue present antibiotics #2 chronic atrial fibrillation-medications were adjusted #3 Alzheimer's dementia #4 chronic debility secondary Alzheimer's dementia #5 hypoxia-etiology unclear, oxygen will be weaned if possible #6 acute kidney injury on a backdrop of chronic kidney disease stage III #7 type 2 diabetes #8 hypertension #9 acute cystitis secondary to Proteus mirabilis Code Visit Inpatient E&M: [id number] Subs Hosp L2
[2019-04-17] MEDS: Aspirin 81 MG TAB.CHEW PO (21:55)
[2019-04-17] MEDS: RisperiDONE 0.25 MG Tablet PO (21:56)
[2019-04-17] MEDS: Pravastatin 40 MG Tablet PO (21:56)
[2019-04-17] MEDS: LORazepam 1 MG Tablet PO (22:01)
[2019-04-17 22:20] LABS: Bedside Glucose 201 mg/dL (70-110)
[2019-04-17] MEDS: 0.9% NaCl IVPB Med Flush (250 mL) 15 ML IV (23:41)
[2019-04-18] MEDS: Menthol/Lanolin/Calamine/Znox 113 GM Tube 1 APPLIC TOPICAL ×2 (01:46→09:41)
[2019-04-18 01:53] VITALS: BP 141/89; PULSE 95; RESP 18; TEMP 37.1; O2SAT 97
[2019-04-18] MEDS: Heparin Injection (Vial) 5,000 UNIT/ML VIAL 5000 UNIT SC ×2 (05:00→14:12)
--- NOTE | 2019-04-18 05:55 | RAD_ITS ---
HISTORY: SOB Short of Breath/DyspneaRAD - Chest ADDITIONAL HISTORY: None provided. COMPARISON: 04/16/2019 TECHNIQUE: Frontal chest radiograph. Number of images including paperwork: 1 FINDINGS: LUNGS AND PLEURA: No consolidation, mass or pleural effusion. CARDIAC SILHOUETTE: Stably enlarged. MEDIASTINUM AND SUMAYA: Unremarkable. UPPER ABDOMEN: Unremarkable. SKELETON AND SOFT TISSUES: No acute findings. OTHER DEVICES AND HARDWARE: None. RAD/Chest 1 View (Portable) IMPRESSION: No acute cardiopulmonary abnormality. at 0555 Reported and signed by: Tika Chavez MD Electronically Signed: Tika Chavez MD at 5:55 EDT Tel , Service support ,
[2019-04-18] MEDS: Insulin Lispro 100 UNIT/ML INSULN.PEN SC ×2 (06:40→11:56)
[2019-04-18 06:51] LABS: Absolute Lymphocyte Count 1.47 X10^3/uL (0.83-4.51); Basophil# 0.06 X10^3/uL; Basophil% 0.7 % (0-1); Eosinophil# 0.12 X10^3/uL; Eosinophils% 1.3 % (0-5); Hemoglobin 12.1 g/dL (12.0-15.0); Lymphocyte # 1.47 X10^3/ul (4.0); Lymphocyte % 16.1 % (19-41); Mean Corp Hgb Conc 32.7 g/dL (32-36); Mean Corpuscular Hgb 29.4 pg (27.0-32.0); Mean Platelet Vol. 10.7 fl (6.2-12.0); Monocyte# 1.44 X10^3/uL; Monocyte% 15.8 % (0-10); NRBC Flagged by Analyzer 0 % (0-5); Neutrophil # 5.98 X10^3/uL (2.7-7.7); Neutrophil % 65.3 % (47-70); Platelet Count 163 K/mm3 (150-450); RBC Distribution Width CV 12.7 % (11.6-14.6); RBC Distribution Width SD 41.6 fl (35.1-43.9); Red Blood Count 4.11 M/mm3 (4.2-5.4); White Blood Count 9.1 K/mm3 (4.4-11.0)
[2019-04-18 07:00] LABS: Bedside Glucose 150 mg/dL (70-110)
[2019-04-18 07:20] LABS: Anion Gap 4 (5-15); BUN 34 mg/dL (7-18); BUN/Creat Ratio 20.1 RATIO (10-20); Chloride 111 mmol/L (98-107); Creatinine, Serum 1.69 mg/dL (0.55-1.02); EST Glomerular Filtration Rate 31 mL/min (>60); Est Glom Filt Rate - Afr Amer 37 mL/min (>60); Estimated Creatinine Clearance 21.78 ml/min; Glucose 159 mg/dL (74-106); Potassium 4.3 mmol/L (3.5-5.1); Sodium Level 142 mmol/L (136-145)
[2019-04-18 09:32] VITALS: BP 149/99; PULSE 118; RESP 18; TEMP 36.9; O2SAT 95
[2019-04-18 09:38] VITALS: PULSE 118
[2019-04-18] MEDS: Metoprolol Tartrate 100 MG Tablet PO (09:38)
[2019-04-18] MEDS: dilTIAZem CD 300 MG Capsule PO (09:38)
[2019-04-18] MEDS: Escitalopram Oxalate 10 MG Tablet PO (09:41)
[2019-04-18 12:00] LABS: Bedside Glucose 202 mg/dL (70-110)
[2019-04-18 12:24] VITALS: BP 165/92; PULSE 83; RESP 18; TEMP 36.7; O2SAT 96
--- NOTE | 2019-04-18 14:39 | CASEMGMT ---
SHAWANDA WILKES into room to discuss HHC at assisted living for therapy. Daughter Bernadine, QUENTIN, in room and is declining HHC for therapy at this time. SHAWANDA WILKES updated hospitalist. ESTER continuing to assist with discharge planning.
--- NOTE | 2019-04-18 14:50 | CASEMGMT ---
Addendum entered by Kendy Huggins 04/18/19 15:29: SW faxed discharge instructions to [facility]. Original Note: Social Work Note Physician is discharging pt to [facility] today. Pt's daughter Mercedes requesting [facility] to transport pt. SW placed a call to [facility] and they are able to transport pt at 3:30pm. RN KATRIN Enamorado updated Bernadine on transportation time. Physician also updated on transportation time and asks to have discharge completed by 3:30pm. ESTER will fax discharge paperwork once completed. Plan: Discharge back to [facility] today with [facility] transporting pt at 3:30pm Kendy Huggins TRACTION POWER ENGINEER, PANCAKE PROFESSIONAL
--- NOTE | 2019-04-18 14:59 | DCINST_ITS ---
- Discharge Diagnoses Current Active Problems: Current Active and Chronic Problems Dementia (Chronic) You will use the following diet at home:: Calorie/Carbohydrate Controlled (specify 1200, 1400, etc) - 1800 yadi Your food should be the consistency of: Regular Your liquids should be the consistency of: Regular/Thin Discharge Activity: Return to Normal Activity Weight Bearing Status: Full weight bearing Additional Instructions: DNR-CC Allergies/Adverse Reactions: Allergies No Known Allergies Allergy (Verified 04/16/19 11:36) Medications to take at Discharge Cholecalciferol (VIT D3) [Vitamin D3] 1,000 unit PO DAILY 03/24/17 Escitalopram Oxalate [Lexapro] 10 mg PO DAILY 03/24/17 Metoprolol Tartrate [Lopressor (beta hugo)] 100 mg PO BID 03/24/17 Acetaminophen [Tylenol] 1,000 mg PO Q8H PRN PRN tablet 08/03/17 Guaifenesin Dm [Robitussin Dm] 5 ml PO Q6H PRN PRN #250 udc 08/03/17 Lorazepam [Ativan] 0.5 mg PO Q6H PRN PRN #60 tablet 08/03/17 Diltiazem HCl [Diltiazem 24Hr ER (Cd)] 300 mg PO DAILY 04/16/19 Loperamide [Imodium] 2 mg PO PRN PRN 04/16/19 Lorazepam [Ativan] 1 mg PO QHS 04/16/19 Risperidone 0.25 mg PO QHS 04/16/19 traMADol [Ultram] 50 mg PO Q6H PRN PRN 04/16/19 Acetaminophen [Tylenol Tablet] 650 mg PO Q6H PRN PRN tab 04/18/19 Cephalexin [Keflex] 500 mg PO BID #15 cap 04/18/19 Diltiazem CD [Cardizem CD] 300 mg PO DAILY cap 04/18/19 Donepezil HCl 10 mg PO DAILY #60 tab 04/18/19 Lisinopril [Zestril] 20 mg PO DAILY #30 tab 04/18/19 Lorazepam [Ativan] 1 mg PO QHS tab 04/18/19 metFORMIN HCl [Glucophage] 500 mg PO BIDCM #60 tab 04/18/19 The following prescriptions were given: Donepezil HCl 10 mg PO DAILY #60 tab Prescription Printed metFORMIN HCl [Glucophage] 500 mg PO BIDCM #60 tab Prescription Printed Cephalexin [Keflex] 500 mg PO BID #15 cap Prescription Printed Lisinopril [Zestril] 20 mg PO DAILY #30 tab Prescription Printed Primary Care Physician: Ana Canales MD [Primary Care Provider] - Please follow up with your Primary Care Physician in: in 2 weeks Test Results: Test results from this visit will be discussed in further detail at your follow- up appointment, if applicable. Please Follow Up With: [facility]
--- NOTE | 2019-04-18 17:02 | CASEMGMT ---
Social Work Note SW received call from Ana at [facility] stating physician made Hospice referral for pt and is requesting referral be faxed to [facility]. ESTER faxed referral to Ana at [facility]. Kendy Huggins [employer]IC, CREDIT RISK SPECIALIST
--- NOTE | 2019-04-19 09:03 | PCM.DC.SUM ---
Discharge Date and Diagnosis Date of Admission: 04/16/19 Date of Discharge: 04/18/19 - Primary Discharge Diagnosis #1 acute severe sepsis secondary to acute cystitis from Proteus mirabilis- #2 chronic atrial fibrillation- #3 Alzheimer's dementia #4 chronic debility secondary Alzheimer's dementia #5 hypoxia-etiology unclear, resolved at the time of discharge #6 acute kidney injury on a backdrop of chronic kidney disease stage III #7 type 2 diabetes #8 hypertension #9 acute cystitis secondary to Proteus mirabilis #10 Alzheimer's dementia - Secondary Discharge Diagnosis Chronic Problems Dementia (Chronic) Hyperlipidemia (Chronic) Chronic atrial fibrillation (Chronic) Type 2 diabetes mellitus (Chronic) Hypertension (Chronic) Hospital Course and Treatment Operations: None Procedures: None Summary of Care Provided: The patient is a 83 year old F was seen in the emergency room at [facility] after being transported in from assisted living due to functional decline and concerns of infection. Work-up in the emergency room revealed the patient to have acute severe sepsis, etiology appeared to be urinary in nature, patient also had acute kidney injury on a backdrop of chronic kidney disease. Patient was admitted to [place] [id number], family requested the patient be comfort care, she was given IV fluids, IV antibiotics, and her status improved during her hospitalization. Patient was on oxygen to the time of the admission-she had no history of lung disease according to the family. Oxygen was weaned off prior to her discharge back to assisted living. I had conversations with the patient's daughter who requested at the time of discharge that the patient go back to assisted living with a hospice consult. Patient's urine culture as well as her blood culture was positive for Proteus mirabilis. On 04/18/2019, patient was seen and examined:General: Cooperative, No apparent distress, - - Drowsy HEENT: Atraumatic, PERRLA, EOMI, Normocephalic Oral: Dry Mucosa Neck: Supple, No JVD, Negative Carotid Bruits Lungs: Clear to auscultation, Diminished Cardiovascular: - - Atrial fibrillation, rate controlled Abdomen: Bowel Sounds Present, Soft, Non Tender, Non-Distended, Obese Extremities: No clubbing, No cyanosis, No edema, Capillary Refill Less than 3 Seconds Skin: No rashes, No breakdown Musculoskeletal: No Tenderness to Palpation of Joints or Extremities Neurological: Cranial nerves II-XII grossly intact, Neuro grossly intact Psych/Mental Status: Patient was alert but confused, she appeared in no distress On 04/18/2019, patient was seen and examined and felt to be in stable condition for transport back to assisted living, hospice was to consult there. - Physical Exam Vital Signs Temp Pulse Resp BP Pulse Ox 98.1 F 83 18 165/92 H 96 04/18/19 12:24 04/18/19 12:24 04/18/19 12:24 04/18/19 12:24 04/18/19 12:24 Oxygen Flow Rate (L/min) 2 Oxygen Delivery Method Room Air Weight: 105.6 kg Body Mass Index (BMI) 39.4 Intake and Output for Last 24 Hours 04/17/19 04/18/19 04/19/19 23:59 23:59 23:59 Intake Total 2223.05 / 2223.05 861 / 861 Output Total 2800 / 2800 1600 / 1600 Balance -576.95 / -576.95 -739 / -739 Microbiology Past 72 Hours 04/16/19 11:50 Blood Culture - Final Blood Culture (Wb) - Left Hand 04/16/19 12:00 Blood Culture - Final Blood Culture (Wb) - Anticubital Right Proteus mirabilis 04/16/19 12:35 Urine Culture - Final Urine, Clean Catch Proteus mirabilis POC Glucose 04/18/19 11:52 POC Glucose 202 H Discharge Activity: Return to Normal Activity Weight Bearing Status: Full weight bearing Home Medications: Medications to take at Discharge Cholecalciferol (VIT D3) [Vitamin D3] 1,000 unit PO DAILY 03/24/17 Escitalopram Oxalate [Lexapro] 10 mg PO DAILY 03/24/17 Metoprolol Tartrate [Lopressor (beta hugo)] 100 mg PO BID 03/24/17 Acetaminophen [Tylenol] 1,000 mg PO Q8H PRN PRN tablet 08/03/17 Guaifenesin Dm [Robitussin Dm] 5 ml PO Q6H PRN PRN #250 udc 08/03/17 Lorazepam [Ativan] 0.5 mg PO Q6H PRN PRN #60 tablet 08/03/17 Diltiazem HCl [Diltiazem 24Hr ER (Cd)] 300 mg PO DAILY 04/16/19 Loperamide [Imodium] 2 mg PO PRN PRN 04/16/19 Lorazepam [Ativan] 1 mg PO QHS 04/16/19 Risperidone 0.25 mg PO QHS 04/16/19 traMADol [Ultram] 50 mg PO Q6H PRN PRN 04/16/19 Acetaminophen [Tylenol Tablet] 650 mg PO Q6H PRN PRN tab 04/18/19 Cephalexin [Keflex] 500 mg PO BID #15 cap 04/18/19 Diltiazem CD [Cardizem CD] 300 mg PO DAILY cap 04/18/19 Donepezil HCl 10 mg PO DAILY #60 tab 04/18/19 Lisinopril [Zestril] 20 mg PO DAILY #30 tab 04/18/19 Lorazepam [Ativan] 1 mg PO QHS tab 04/18/19 metFORMIN HCl [Glucophage] 500 mg PO BIDCM #60 tab 04/18/19 Following Prescrptions Were Given to Patient: Donepezil HCl 10 mg PO DAILY #60 tab Prescription Printed metFORMIN HCl [Glucophage] 500 mg PO BIDCM #60 tab Prescription Printed Cephalexin [Keflex] 500 mg PO BID #15 cap Prescription Printed Lisinopril [Zestril] 20 mg PO DAILY #30 tab Prescription Printed Primary Care Physician: Ana Canales MD [Primary Care Provider] - Please follow up with your Primary Care Physician in: in 2 weeks Please Follow Up With: [facility] Disposition: Home with Hospice Minutes spent on discharge:: 32 Patient Condition:: Stable Medical Necessity - Tobacco Use Smoking Status: Never smoker Tobacco Use: Secondhand Meaningful Use Info Meaningful Use Diagnoses (Choose all that apply): None applicable Code Visit Inpatient E&M: 11766 Disch Hosp
== END 2019-04-18 17:04 | disposition home or self-care (01) | DRG 872 ==
LOC: ED 13:13 → MS3 13:56
PROVIDERS: Admitting Provider Internal Medicine; Emergency Provider Emergency Medicine; Family Provider Family Medicine; PCP Family Medicine; Referring Provider Internal Medicine; Visit Provider Internal Medicine
DX: A41.4 Sepsis due to anaerobes (principal); N30.00 Acute cystitis without hematuria; N17.9 Acute kidney failure, unspecified; R65.20 Severe sepsis without septic shock; F02.80 Dementia in other diseases classified elsewhere, unspecified severity, without behavioral disturbance, psychotic disturbance, mood disturbance, and anxiety; G30.9 Alzheimer's disease, unspecified; E11.22 Type 2 diabetes mellitus with diabetic chronic kidney disease; R53.81 Other malaise; I48.2 Chronic atrial fibrillation; N18.3 Chronic kidney disease, stage 3 (moderate); E78.5 Hyperlipidemia, unspecified; I12.9 Hypertensive chronic kidney disease with stage 1 through stage 4 chronic kidney disease, or unspecified chronic kidney disease; Z66 Do not resuscitate; Z77.22 Contact with and (suspected) exposure to environmental tobacco smoke (acute) (chronic); Z79.4 Long term (current) use of insulin; R09.02 Hypoxemia
CPT/HCPCS: 36415; 71045; 80048; 80053; 81001; 82962; 83605; 85025; 87040; 87077; 87086; 87088; 87186; 92526; 92610; 93005; 99285; J7030; J7040; J7050; P9612; A4216

== ENCOUNTER → 2019-06-07 10:00 | Outpatient (REF) | payer MEDICARE, SELFPAY ==
[2019-04-16 14:16] VITALS: BMI 39.4
[2019-06-07 12:39] LABS: Bacteria 0 SEEN /hpf (None Seen); Mucous, Urine 0 SEEN /hpf (<or=2+); Red Blood Cells-Urine 0 SEEN /hpf (0-5); Squamous Epithelial Cells - UA 0 SEEN /hpf (5-10)
[2019-06-07 12:46] LABS: Color, Urine Yellow (Yellow); Glucose, Dipstick Normal (Normal); Ketone-Dipstick Negative (Negative); Leukocyte Esterase-Dipstick 500 /ul (Negative); Nitrite-Dipstick Negative (Negative); Occult Blood-Urine 150 /ul (Negative); Protein-Dipstick 30 mg/dl (Negative); Urine Bilirubin Dipstick Negative (Negative); Urine Clarity Cloudy (Clear); Urine Urobilinogen Normal (Normal)
[2019-06-07 12:59] LABS: White Blood Cells >100 SEEN /hpf (0-5)
== END ==
LOC: OLS.DANBUR 10:00
PROVIDERS: Visit Provider Family Medicine
DX: N39.0 Urinary tract infection, site not specified (principal)
CPT/HCPCS: 81001; 87077; 87086; 87088; 87186